=== PATIENT | male | born 1945 | race Caucasian/White ===

== ENCOUNTER → 2016-09-15 | Outpatient (CLI) | payer MEDICARE, BC ==
[2016-09-15 15:21] LABS: CH 31.6; CHCM 33.5; HCT 42.8 % (39.0-53.0); HDW 2.31; HGB 13.9 gm/dL (13.0-17.5); MCH 30.8 pg (25.0-35.0); MCHC 32.5 g/dL (31.0-37.0); MCV 94.6 fL (80.0-100.0); Mean Platelet Volume 7.6; RBC 4.52 m/uL (4.30-5.90); RDW 12.3 % (11.5-15.5); WBC 6.8 k/uL (3.8-10.6)
[2016-09-15 15:29] LABS: INR 2.1 (<1.1); Prothrombin Time 19.9 sec (9.0-12.0)
[2016-09-15 15:31] LABS: Anion Gap 12 mmol/L; Blood Urea Nitrogen 30 mg/dL (9-20); Calcium 9.3 mg/dL (8.4-10.2); Carbon Dioxide 27 mmol/L (22-30); Chloride 101 mmol/L (98-107); Glucose 124 mg/dL (74-99); Non-African American GFR(MDRD) >60 (>60 ml/min/1.73 sqM); Potassium 4.3 mmol/L (3.5-5.1); Sodium 140 mmol/L (137-145)
== END | disposition home or self-care (01) ==
LOC: LABWHC1 14:55
PROVIDERS: ATTEND Internal Medicine Clinical Cardiac Electrophysiology
DX: I25.10 Atherosclerotic heart disease of native coronary artery without angina pectoris (principal); I42.8 Other cardiomyopathies; I40.1 Isolated myocarditis; I49.5 Sick sinus syndrome
CPT/HCPCS: 36415; 80048; 85027; 85610

== ENCOUNTER → 2016-09-22 | Day surgery (SDC) | payer MEDICARE, BC ==
[2016-09-20 10:33] VITALS: BMI 26.4
[~2016-09-22] MED LIST: SODIUM CHLORIDE 0.9% 1,000 ML IV SCH; ceFAZolin 1,000 MG in SODIUM CHLORIDE 0.9% IRRIGATIO 250 ML IRRIGATION ONE; ceFAZolin 2 GM in SODIUM CHLORIDE 0.9% 100 ML IVPB ONE
[2016-09-22 16:44] VITALS: BP 119/67; PULSE 62; RESP 16; TEMP 97.9
[2016-09-22 17:00] LABS: INR 1.3 (<1.1); Prothrombin Time 12.9 sec (9.0-12.0)
--- NOTE | 2016-09-22 17:58 | P.PCN ---
Preoperative Diagnosis: Procedure note Mr. Sharif came in for dual-chamber ICD implant He developed a skin rash about 2 weeks back always belly and chest. He states that it started after he began Coreg. In addition he has developed a rash in relation to the event monitor patch, SEAK with red and angry edges. Suggest Hold off on ICD implantation Switched back to metoprolol succinate but at a low dose of 25 mg a day Reevaluate in 2 weeks and once this skin heals up we will proceed with ICD implantation, dual-chamber for cardiomyopathy
== END ==
LOC: CATHEP 16:19
PROVIDERS: ATTEND Internal Medicine Clinical Cardiac Electrophysiology
DX: Z45.02 Encounter for adjustment and management of automatic implantable cardiac defibrillator (principal); Z53.09 Procedure and treatment not carried out because of other contraindication; L27.1 Localized skin eruption due to drugs and medicaments taken internally; I42.9 Cardiomyopathy, unspecified; I25.10 Atherosclerotic heart disease of native coronary artery without angina pectoris; I10 Essential (primary) hypertension; E78.5 Hyperlipidemia, unspecified; Z95.5 Presence of coronary angioplasty implant and graft; Z79.01 Long term (current) use of anticoagulants; Z79.02 Long term (current) use of antithrombotics/antiplatelets; Z79.82 Long term (current) use of aspirin; Z79.899 Other long term (current) drug therapy; T44.7X5A Adverse effect of beta-adrenoreceptor antagonists, initial encounter
CPT/HCPCS: 85610

== ENCOUNTER → 2016-11-03 | Outpatient (CLI) | payer MEDICARE, BC ==
[2016-11-03 10:20] LABS: CH 31.5; CHCM 33.1; HCT 41.4 % (39.0-53.0); HDW 2.29; HGB 13.8 gm/dL (13.0-17.5); MCH 31.8 pg (25.0-35.0); MCHC 33.3 g/dL (31.0-37.0); MCV 95.6 fL (80.0-100.0); Mean Platelet Volume 7.7; RBC 4.33 m/uL (4.30-5.90); RDW 12.1 % (11.5-15.5)
[2016-11-03 10:25] LABS: Prothrombin Time 19.3 sec (9.0-12.0)
[2016-11-03 10:43] LABS: Anion Gap 9 mmol/L; Blood Urea Nitrogen 24 mg/dL (9-20); Calcium 9.6 mg/dL (8.4-10.2); Carbon Dioxide 27 mmol/L (22-30); Chloride 103 mmol/L (98-107); Glucose 98 mg/dL (74-99); Magnesium 2.1 mg/dL (1.6-2.3); Non-African American GFR(MDRD) >60 (>60 ml/min/1.73 sqM); Potassium 4.7 mmol/L (3.5-5.1); Sodium 139 mmol/L (137-145)
== END | disposition home or self-care (01) ==
LOC: LABWHC1 09:46
PROVIDERS: ATTEND Internal Medicine Clinical Cardiac Electrophysiology
DX: I25.10 Atherosclerotic heart disease of native coronary artery without angina pectoris (principal); I48.1 Persistent atrial fibrillation; I42.8 Other cardiomyopathies; I49.5 Sick sinus syndrome; I48.2 Chronic atrial fibrillation; Z51.81 Encounter for therapeutic drug level monitoring
CPT/HCPCS: 36415; 80048; 83735; 85027; 85610

== ENCOUNTER 2016-11-15 10:49 | Day surgery (SDC) | payer MEDICARE, BC ==
[2016-11-10 16:20] VITALS: BMI 25.9
[~2016-11-15 10:49] MED LIST changes: -SODIUM CHLORIDE 0.9% 1,000 ML IV SCH
[2016-11-15] MEDS: SODIUM CHLORIDE 0.9% 1,000 ML IV SCH (11:19)
[2016-11-15 11:27] LABS: INR 1.4 (<1.1); Prothrombin Time 13.7 sec (9.0-12.0)
[2016-11-15] MEDS ORDERED: IOHEXOL 350 MG/ML 100 ML BOTTLE INJ ONE (12:28)
[2016-11-15] MEDS ORDERED: PROPOFOL 10 MG/ML 20 ML VIAL IV ONE (12:33)
[2016-11-15] MEDS ORDERED: MIDAZOLAM 2 MG/2 ML VIAL ONE (12:33)
[2016-11-15] MEDS ORDERED: fentaNYL (PF) 50 MCG/ML 2 ML AMP ONE (12:33)
[2016-11-15] MEDS ORDERED: LIDOCAINE 1% INJ 10MG/ML (20 ML MDV) SQ ONE ×2 (12:54→13:06)
--- NOTE | 2016-11-15 13:55 | P.HPCAR ---
History of Present Illness Chief Complaint: Persistent severe cardio myopathy, CHF class II Impression Persistent cardiomyopathy predominantly nonischemic with known underlying coronary artery disease single vessel RCA status post stenting Persistent symptomatic atrial fibrillation responded to dofetilide and maintains sinus rhythm Conduction system disease with AV node disease as well as Sick Sinus Syndrome Despite maintenance of sinus rhythm his left ventricular ejection fraction remains at 25% Chronic congestive heart failure, systolic, class II Known underlying single-vessel coronary artery disease On guideline directed medical treatment, LV function remains reduced for greater than 6 months after conversion to sinus rhythm Procedure performed Dual-chamber ICD implant for primary prevention of sudden cardiac Physical Exam Vitals: Vital Signs Temp Pulse Resp BP Pulse Ox 11/15/16 11:10 97.9 F 60 16 120/67 97 Intake and Output 11/14/16 11/15/16 11/15/16 22:59 06:59 14:59 Intake Total 100 Balance 100 Intake: IV 100 Past Medical History Past Medical History: Atrial Fibrillation, Osteoarthritis (OA), Prostate Disorder Additional Past Medical History / Comment(s): See DR Michelle's H&P,SOB w/ exertion, prostate problem years ago, Rt. inguinal hernia History of Any Multi-Drug Resistant Organisms: None Reported Past Surgical History: Heart Catheterization With Stent, Prostate Surgery, Tonsillectomy Additional Past Surgical History / Comment(s): CARDIOVERSION x2-most recent January 2016, TURP Past Anesthesia/Blood Transfusion Reactions: No Reported Reaction Date of Last Stent Placement:: 03/2016 Past Psychological History: No Psychological Hx Reported Smoking Status: Never smoker Past Alcohol Use History: None Reported Past Drug Use History: None Reported - Past Family History Mother Family Medical History: Cancer Additional Family Medical History / Comment(s): . Father Additional Family Medical History / Comment(s): KILLED IN WAR Physical Examination Vital Signs Temp Pulse Resp BP Pulse Ox 11/15/16 11:10 97.9 F 60 16 120/67 97 Intake and Output 11/14/16 11/15/16 11/15/16 22:59 06:59 14:59 Intake Total 100 Balance 100 Intake: IV 100 Results Coagulation 11/15/16 Range/Units 11:15 PT 13.7 H (9.0-12.0) sec Current Medications Generic Name Dose Route Start Last Admin Trade Name Freq PRN Reason Stop Dose Admin Acetaminophen 650 mg 11/15/16 12:40 Tylenol Tab PO Q6HR PRN Mild Pain Aspirin 81 mg 11/16/16 09:00 Aspirin PO DAILY [facility] Atorvastatin Calcium 40 mg 11/15/16 21:00 Lipitor PO HS [facility] Clopidogrel Bisulfate 75 mg 11/16/16 09:00 Plavix PO DAILY [facility] Dofetilide 250 mcg 11/15/16 21:00 Tikosyn PO Q12HR [facility] Sodium Chloride 1,000 mls @ 20 mls/hr 11/15/16 07:31 11/15/16 11:19 Saline 0.9% IV 0 mls .Q24H [facility] Administration Lactated Ringer's 1,000 mls @ 20 mls/hr 11/15/16 07:31 Lactated Ringers IV .Q24H [facility] Cefazolin Sodium 2 gm/ Sodium 100 mls @ 100 mls/hr 11/15/16 18:00 Chloride IVPB 11/16/16 12:59 Q6H [facility] Losartan Potassium 25 mg 11/16/16 09:00 Cozaar PO DAILY [facility] Metoprolol Succinate 25 mg 11/16/16 09:00 Toprol Xl PO DAILY [facility] Sodium Chloride 10 ml 11/15/16 21:00 Saline Flush IV Q12HR [facility] Spironolactone 50 mg 11/16/16 09:00 Aldactone PO DAILY [facility] Warfarin Sodium 5 mg 11/15/16 17:30 Coumadin PO W/SUPPER [facility] Intake and Output 11/14/16 11/15/16 11/15/16 22:59 06:59 14:59 Intake Total 100 Balance 100 Intake: IV 100
--- NOTE | 2016-11-15 14:13 | LTR ---
November 15, 2016 RE: Ian Sharif Dear Gregg; I had the pleasure of seeing Mr. Ian Sharif in electrophysiology followup. As you know Mr. Sharif' cardiomyopathy remains unchanged at 25% despite medical treatment, and maintenance of sinus rhythm since last year. Since he also has conduction system disease, a dual-chamber ICD was implanted successfully today and his DFT is at or below 11 joules. He will continue to follow with you and Dr. Giovanni Reese as before. I will continue anticoagulation and dofetilide and his cardiomyopathy medications. Thank you for entrusting me with the care of your patient. Warm regards. Sincerely, PRETTY SCHMID MD
[2016-11-15] MEDS: LACTATED RINGERS 1,000 ML IV SCH (14:40)
[2016-11-15 16:09] VITALS: RESP 18
[2016-11-15] MEDS ORDERED: WARFARIN 5 MG TAB PO SCH (17:30)
[2016-11-15] MEDS: ceFAZolin 2 GM in SODIUM CHLORIDE 0.9% 100 ML IVPB SCH ×2 (18:13→23:39)
[2016-11-15] MEDS: ACETAMINOPHEN TAB 325 MG TAB PO PRN (18:22)
[2016-11-15] MEDS: DOFETILIDE 250 MCG CAP PO SCH (20:18)
[2016-11-15] MEDS ORDERED: ATORVASTATIN 40 MG TAB PO SCH (21:00)
[2016-11-16] MEDS: ACETAMINOPHEN TAB 325 MG TAB PO PRN (04:27)
[2016-11-16] MEDS: ceFAZolin 2 GM in SODIUM CHLORIDE 0.9% 100 ML IVPB SCH ×2 (05:59→11:28)
[2016-11-16] MEDS: SODIUM CHLORIDE 0.9% 1,000 ML IV SCH (05:59)
[2016-11-16] MEDS: LACTATED RINGERS 1,000 ML IV SCH (05:59)
--- NOTE | 2016-11-16 07:18 | XR ---
EXAMINATION TYPE: XR chest 2V DATE OF EXAM: 11/16/2016 6:15 AM COMPARISON: 04/24/2016 HISTORY: 71-year-old male lead placement check TECHNIQUE: Frontal and lateral views FINDINGS: The cardiomediastinal silhouette, aorta, and pulmonary vasculature are within normal limits. Lungs an d pleural spaces are clear. Left anterior chest wall AICD generator with right atrial and right ventricular leads. IMPRESSION: No acute cardiopulmonary process. Right atrial and right ventricular AICD leads.
--- NOTE | 2016-11-16 08:04 | P.DS ---
Providers Attending physician: Erik Michelle Primary care physician: [facility] Hospital Course: Patient is doing well from a cardiac standpoint. He is ablated to the bathroom. No chest discomfort or undue shortness of breath. He is resting comfortably in bed Vitals are stable. He is afebrile 97.1F, pulse rate in the 60s, telemetry within normal limits, blood pressure 112/73 mmHg normal respirations Heart sounds S1 and S2 are normal no murmurs no gallops Rhythm is regular Breath sounds are normal no rhonchi no crackles Abdomen is soft nontender Extremities warm no edema Device device site is healing well no hematoma Impression Predominantly nonischemic cardio myopathy Single vessel coronary artery disease status post stenting to the RCA Persistent atrial fibrillation status post conversion to sinus rhythm with dofetilide On appropriate guideline directed medical treatment No improvement in LV function, ejection fraction remains at 25% chronic systolic dysfunction with class II heart failure Status post dual-chamber ICD since the patient also has significant conduction system disease Plan Discharge home today and follow-up in the device clinic in 5 days and follow-up with primary scrap bunch maker as scheduled Hold Coumadin for 2 more days continue all other medications as before Instructions given to the patient Patient Condition at Discharge: Stable Plan - Discharge Summary Discharge Medication List Aspirin 81 mg PO DAILY #30 chew 04/05/16 [Rx] Atorvastatin [Lipitor] 40 mg PO HS #30 tab 04/05/16 [Rx] Clopidogrel [Plavix] 75 mg PO DAILY #30 tab 04/05/16 [Rx] Losartan [Cozaar] 25 mg PO DAILY #30 tab 04/05/16 [Rx] Warfarin [Coumadin] 5 mg PO W/SUPPER 04/24/16 [History] Acetaminophen Tab [Tylenol] 650 mg PO Q6HR PRN #0 tab 04/27/16 [Rx] Dofetilide [Tikosyn] 250 mcg PO Q12HR #180 cap 05/25/16 [Rx] Magnesium Oxide [Mag-Ox] 400 mg PO DAILY #90 tablet 05/25/16 [Rx] Spironolactone [Aldactone] 50 mg PO DAILY #90 tab 05/25/16 [Rx] Nitroglycerin Sl Tabs [Nitrostat] 0.4 mg SUBLINGUAL DIRECTED PRN 09/20/16 [ History] Metoprolol Succinate [Toprol XL] 25 mg PO DAILY 11/10/16 [History] Activity/Diet/Wound Care/Special Instructions: PATIENT EDUCATION MATERIAL Instructions following a heart rhythm device implant. 1. Keep dressing DRY for ONE week. You may cover the area with Saran or Cling Wrap, prior to a shower. 2. The dressing will be removed after one week in the Device Clinic @ [facility]. Absorbable sutures were used to close the wound. 3. Avoid raising the arm above the shoulder level. [6 week restriction] 4. Avoid arm movements, like backscratching, rubbing the head, or pulling on a cord. (6 weeks restriction) 5. Gentle range of motion movements of the shoulder, closest to the incision should be performed to avoid a frozen shoulder. (Pendulum exercises of the shoulder) 6. The opposite arm may be used freely. 7. Avoid driving for 7 days. 8. Avoid activities such as golfing, swimming, weed whacking, lifting more than 10 pounds weight, bowling, gymnastics and weight training/lifting. (6 weeks restriction) 9. Activities such as wood chopping with an axe, pull-ups in the gymnasium, power lifting, arc-welding, being close to home induction cooktops will always be a problem. In case of any problems, please call [facility], Danny Green, @ [phone], Attention: Device Clinic Follow-up in the device clinic in 5 days Follow-up with DR Reese as scheduled Hold Coumadin for 2 more days and then resume
--- NOTE | 2016-11-16 08:35 | CE ---
DATE OF SERVICE: Mr. Ian Sharif is a 71-year-old male patient who has predominantly nonischemic cardiomyopathy, but also had underlying coronary artery disease, status post stenting to the RCA as he had very symptomatic persistent atrial fibrillation, but his heart failure symptoms improved after conversion to sinus rhythm and maintenance on dofetilide. However, since May despite maintaining sinus rhythm, he continues to have severe cardiomyopathy and his left ventricular ejection fraction is persistently at 25% despite all interventions and appropriate medical treatment. He has conduction system disease. He underwent a dual-chamber ICD implantation for primary prevention of sudden cardiac . The patient was brought to the EP lab in a fasting state. Written informed consent was obtained prior to the procedure. The left shoulder area was prepped and draped as per protocol and 1% lidocaine was used for local anesthesia. A 4 cm incision was made parallel to the deltopectoral groove about 1.5 cm medial to it then incision was carried down to the level of the pectoralis muscle. A subfascial pocket was made. Hemostasis was assured. The left axillary vein was accessed at 2 separate points under fluoroscopy and via appropriate-sized introducer sheath, 2 leads were positioned in the right heart. The atrial lead was a [employer] Ingevity MRI 52 cm in length, model #7741, serial #[id number]. This was screwed in the right atrial appendage. P waves were 3.7 mV, pacing threshold 1.0 v at 0.5 ms. Pacing impendence 1460 ohms. The RV lead was a single coil and ( ) lead, [place] 4 SG single coil 64 cm in length and model #0293, serial #[id number]. This was placed in low RV septum. The R waves are 23.9 mV, pacing threshold 0.4 v at 0.5 ms, pacing impedance 781 ohms, shocking impedance 66 ohms. The 10 v test is negative. The 10 v test was negative for both leads. The leads were secured to the underlying pectoralis fascia using 2 nonabsorbable sutures. Pocket was irrigated with antibiotic solution. Leads were connected to the generator ([employer] model #D152, serial #[id number]. The leads and the generator were then placed in the subfascial pocket. The wound was closed in 3 layers and dressed per protocol. DFT TESTING UNDER ANESTHESIA. Shock and T wave protocol was used to induce ventricular fibrillation. This was adequately and appropriately detected at ( ) sensitivity and successfully internally defibrillated with a 10 joule shock. The charge time was 1.9 seconds. Shocking impedance 61 ohms. No postshock noise. (Vector equals distal ( ) ). The device was then programmed to rhythm. IQ AAI with VVI backup to minimize RV pacing since he has conduction system disease. Rate 50-140 bpm. Madit-RIT programming with 3 zones and appropriate antitachycardia pacing, cardioversion and defibrillation were programmed. The patient tolerated the procedure well without any acute complications. PLAN: Continue medical treatment, resume anticoagulation, continue dofetilide and follow up with Dr. Giovanni Reese and Dr. Gregg Saldivar.
[2016-11-16] MEDS: DOFETILIDE 250 MCG CAP PO SCH (08:44)
[2016-11-16] MEDS ORDERED: LOSARTAN 25 MG TAB PO SCH (09:00)
[2016-11-16] MEDS ORDERED: METOPROLOL SUCCINATE (ER) 25 MG TAB.ER.24H PO SCH (09:00)
[2016-11-16] MEDS ORDERED: CLOPIDOGREL 75 MG TAB PO SCH (09:00)
[2016-11-16] MEDS ORDERED: SPIRONOLACTONE 25 MG TAB PO SCH (09:00)
[2016-11-16] MEDS ORDERED: ASPIRIN 81 MG CHEW PO SCH (09:00)
[2016-11-16 11:30] VITALS: BP 125/74; PULSE 68; TEMP 97.4
== END 2016-11-16 13:54 | disposition home or self-care (01) ==
LOC: CATHEP 10:49 → 6SEL 13:52 → CATHEP 11-16 13:54
PROVIDERS: ATTEND Internal Medicine Clinical Cardiac Electrophysiology
DX: I42.9 Cardiomyopathy, unspecified (principal); I25.5 Ischemic cardiomyopathy; I25.10 Atherosclerotic heart disease of native coronary artery without angina pectoris; Z95.5 Presence of coronary angioplasty implant and graft; I48.1 Persistent atrial fibrillation; I49.5 Sick sinus syndrome; I50.22 Chronic systolic (congestive) heart failure; I44.0 Atrioventricular block, first degree; Z00.6 Encounter for examination for normal comparison and control in clinical research program; M19.90 Unspecified osteoarthritis, unspecified site; E78.5 Hyperlipidemia, unspecified; I25.2 Old myocardial infarction; I27.2 Other secondary pulmonary hypertension; Z79.01 Long term (current) use of anticoagulants; Z79.02 Long term (current) use of antithrombotics/antiplatelets; Z79.82 Long term (current) use of aspirin; Z79.899 Other long term (current) drug therapy; Z88.2 Allergy status to sulfonamides
CPT/HCPCS: 93641; 33249; 85610; 71020; C1892 ×2; C1769; C1777; C1721; C1898; J2250; Q9967; J0690 ×3; J2001; J3010; J2704

== ENCOUNTER → 2017-04-18 | Outpatient (CLI) | payer MEDICARE, BC ==
[2017-04-18 16:54] LABS: Anion Gap 10 mmol/L; Blood Urea Nitrogen 28 mg/dL (9-20); Calcium 9.8 mg/dL (8.4-10.2); Carbon Dioxide 26 mmol/L (22-30); Chloride 101 mmol/L (98-107); Glucose 99 mg/dL (74-99); Non-African American GFR(MDRD) >60 (>60 ml/min/1.73 sqM); Sodium 137 mmol/L (137-145)
[2017-04-18 17:04] LABS: Potassium 4.7 mmol/L (3.5-5.1)
== END | disposition home or self-care (01) ==
LOC: LABWHC1 16:09
PROVIDERS: ATTEND Internal Medicine Interventional Cardiology
DX: I10 Essential (primary) hypertension (principal); I42.9 Cardiomyopathy, unspecified
CPT/HCPCS: 36415; 80048

== ENCOUNTER → 2017-05-05 | Outpatient (CLI) | payer MEDICARE, BC ==
[2017-05-05 12:28] LABS: Anion Gap 9 mmol/L; Blood Urea Nitrogen 30 mg/dL (9-20); Calcium 9.3 mg/dL (8.4-10.2); Carbon Dioxide 25 mmol/L (22-30); Chloride 102 mmol/L (98-107); Glucose 119 mg/dL (74-99); Magnesium 1.8 mg/dL (1.6-2.3); Non-African American GFR(MDRD) >60 (>60 ml/min/1.73 sqM); Potassium 4.9 mmol/L (3.5-5.1); Sodium 136 mmol/L (137-145)
== END | disposition home or self-care (01) ==
LOC: LABWHC1 11:31
PROVIDERS: ATTEND Internal Medicine Clinical Cardiac Electrophysiology
DX: I48.91 Unspecified atrial fibrillation (principal)
CPT/HCPCS: 36415; 80048; 83735

== ENCOUNTER → 2018-09-10 | Outpatient (CLI) | payer MEDICARE, BC ==
--- NOTE | 2018-09-10 14:43 | US ---
EXAMINATION TYPE: US kidneys/renal and bladder DATE OF EXAM: 09/10/2018 COMPARISON: NONE CLINICAL HISTORY: R31.21 HEMATURIA. EXAM MEASUREMENTS: Right Kidney: 10.5 x 4.9 x 4.5 cm Left Kidney: 9.6 x 4.5 x 4.5 cm Right Kidney: echogenic foci noted lower pole possible stones largest of 2 measuring 0.4 x 0.2 x 0.5c m Left Kidney: No hydronephrosis or masses seen Bladder: wnl There is no evidence for hydronephrosis at this point in time. No masses are identified. The urinary bladder is anechoic. Bilateral ureteral jets are seen. IMPRESSION: Nonobstructing nephrolithiasis.
== END | disposition home or self-care (01) ==
LOC: RADUSWWP 13:56
PROVIDERS: ATTEND Internal Medicine
DX: N20.0 Calculus of kidney (principal)
CPT/HCPCS: 76770

== ENCOUNTER → 2022-03-22 | Outpatient (CLI) | payer MEDICARE, BC ==
[2022-03-22 15:12] LABS: Anion Gap 10.9 mmol/L (10.00-18.00); BUN/Creat Ratio 22.76 Ratio (12.00-20.00); Blood Urea Nitrogen 23.9 mg/dL (9.0-27.0); Calcium 9.1 mg/dL (8.7-10.3); Carbon Dioxide 22.9 mmol/L (20.0-27.5); Non-African American GFR(CKD) 68.1 (60.0-200.0); Potassium 4.2 mmol/L (3.5-5.5)
== END | disposition home or self-care (01) ==
LOC: LABWHC1 08:16
PROVIDERS: ATTEND Internal Medicine Interventional Cardiology
DX: I50.9 Heart failure, unspecified (principal)
CPT/HCPCS: 36415; 80048

== ENCOUNTER → 2022-05-06 | Outpatient (CLI) | payer MEDICARE, BC ==
[2022-05-06 14:41] LABS: African American GFR (CKD) 51.3 (60.0-200.0); Anion Gap 11.9 mmol/L (10.00-18.00); BUN/Creat Ratio 31.13 Ratio (12.00-20.00); Blood Urea Nitrogen 46.7 mg/dL (9.0-27.0); Calcium 9.2 mg/dL (8.7-10.3); Carbon Dioxide 25.1 mmol/L (20.0-27.5); Non-African American GFR(CKD) 44.3 (60.0-200.0); Potassium 5.1 mmol/L (3.5-5.5)
== END | disposition home or self-care (01) ==
LOC: LABWHC1 09:53
PROVIDERS: ATTEND Internal Medicine Interventional Cardiology
DX: I50.9 Heart failure, unspecified (principal)
CPT/HCPCS: 36415; 80048

== ENCOUNTER → 2022-05-23 | Outpatient (CLI) | payer MEDICARE, BC ==
--- NOTE | 2022-05-23 15:35 | CT ---
EXAMINATION TYPE: CT urogram wo/w con DATE OF EXAM: 05/23/2022 COMPARISON: INDICATION: hematuria DLP: 1232.90 mGycm, Automated exposure control for dose reduction was used. CONTRAST: 100 mL of Isovue 370. Study performed TECHNIQUE: Axial images were obtained from above the diaphragm to the pubic rami in the axial plane a t 5 mm thick sections. Reconstructed images are reviewed on the computer in the coronal plane. FINDINGS: Limited CT sections are obtained the lung bases. The lung bases are clear. CT ABDOMEN: Liver: Multiple scattered hypodensities or within the liver which may be related to multiple hepatic cysts. Spleen: Normal Pancreas: Normal Adrenal glands: The adrenal glands are normal. Gallbladder: Normal Kidneys: No masses are evident. No hydronephrosis is present. No cysts are present. There is a 0.7 cm nonobstructing renal stone mid to inferior pole right kidney. 3-D reconstructed images performed through the renal system after a delay were obtained. Ureters have limited evaluation more so on the right than the left. No hydronephrosis is identified. It may be an extrarenal pelvis on the right. Ur eters as visualized appear normal. Urinary bladder appears normal. Aorta: Vascular calcification is within the aorta. Aorta is tortuous. Inferior vena cava: Normal. CT PELVIS: There is a right inguinal hernia containing loops of nondistended dilated bowel. No obstru ction is evident. Loops of bowel within the abdomen and pelvis are normal. There are loops of bowel which are incom pletely distended or lack oral contrast limiting their evaluation. Appendix: Normal as visualized. Urinary bladder: Normal. Genitourinary structures: Prostate is prominent contains multiple calcifications. Osseous structures: No suspicious lytic or sclerotic lesions. Facet changes are in the lower lumbar s pine. Degenerative disc changes are present. Some facet hypertrophy may be contributing to spinal can al narrowing. IMPRESSIONS: 1. No suspicious abnormality renal collecting system. There is some limitation on the evaluation of the ureters. There appears to be a nonobstructing right renal stone present 2. Right inguinal hernia without bowel obstruction. 3. Scattered hypodensities within the liver likely related to hepatic cysts. 4. Facet changes and degenerative disc changes lumbar spine. MRI could further evaluate for spinal ca nal stenosis.
== END | disposition home or self-care (01) ==
LOC: RADCTMAIN 13:26
PROVIDERS: ATTEND Urology
DX: R31.0 Gross hematuria (principal)
CPT/HCPCS: 82565; 84520; 74178; 36415; 74400; Q9967

== ENCOUNTER 2022-07-05 05:53 | Day surgery (SDC) | payer MEDICARE, BC ==
[2022-07-05] MEDS ORDERED: LACTATED RINGERS 1,000 ML IV SCH (06:03)
[2022-07-05] MEDS ORDERED: LIDOCAINE 1% (10MG/ML) FOR IV START INTRADERMA PRN (06:03)
[2022-07-05 06:32] VITALS: TEMP 97.2
[2022-07-05] MEDS ORDERED: LIDOCAINE 2% INJ 20 MG/ML (2 ML VIAL) ONE (06:56)
[2022-07-05] MEDS ORDERED: PROPOFOL 10 MG/ML 20 ML VIAL IV ONE (06:56)
--- NOTE | 2022-07-05 07:21 | P.PCN ---
Date of Procedure: 07/05/22 Procedure(s) Performed: Brief history: Patient is a pleasant 77-year-old white female scheduled for an elective upper endoscopy as well as colonoscopy as a part of evaluation of I deficiency anemia. He also complaining of intermittent rectal bleeding for the last few months. He has history of A. fib and has been on Coumadin which is currently on hold for 5 days. Procedure performed: Esophagogastroduodenoscopy with biopsy Colonoscopy with biopsy. Preoperative diagnosis: Iron deficiency anemia and intermittent rectal bleeding Anesthesia: MAC Procedure: After informed consent was obtained from the patient was brought into the endoscopy unit and IV sedation was administered by anesthesia under continuous monitoring. Initially upper endoscopy was done. The Olympus GF 160 video endoscope was inserted inserted into the mouth and esophagus intubated without any difficulty and was gradually advanced into the stomach and duodenum and carefully examined. The bulb and second part of the duodenum appeared normal. biopsies were done from the duodenum to rule out celiac disease The scope was t hen withdrawn into the stomach adequately insufflated with air and upon careful examination the antrum and body, had scattered erosions and biopsies were done from this area. The cardia and fundus appeared normal. The scope was then withdrawn into the esophagus. The GE junction was located at 40 cm to the incisors. It appeared regular with 2 superficial erosions consistent with LA grade B reflux esophagitis. Rest of the esophagus appeared normal. Patient tolerated the procedure well. At this time the patient continued to remain sedation. Initial digital rectal examination was normal. Olympus CF 160 video colonoscope was then inserted into the rectum and gradually advanced to the cecum without any difficulty. Careful examination was performed as the scope was gradually being withdrawn. The prep was excellent. The cecum, appeared normal. Ascending colon there was a 3 mm polyp removed by cold biopsy. In the transverse colon there was another 3 mm polyp removed by cold biopsy. Rest of the ascending colon, transverse colon, descending colon, sigmoid colon and rectum appeared normal. Scattered sigmoid diverticulosis. Small internal hemorrhoids. Retroflexion was performed in the rectum and small internal hemorrhoids were noted. Patient tolerated the procedure well. Impression: 1. Upper endoscopy revealed antral erosive gastritis and LA grade B reflux esophagitis 2. Colonoscopy revealed a 3 mm ascending colon polyp and a 4 mm transverse colon polyp status post cold biopsy and scattered sigmoid diverticulosis. Recommendations: Findings of this examination were discussed with the patient as well as his family. He was advised to follow with the biopsy results. He'll continue with iron supplements and monitor CBC periodically. He was advised to resume Co umadin today.
[2022-07-05 07:24] VITALS: RESP 16
[2022-07-05 07:40] VITALS: BP 106/65; PULSE 62
== END 2022-07-05 07:52 | disposition home or self-care (01) ==
LOC: ORWHC2ENDO 05:53
PROVIDERS: ATTEND Internal Medicine Gastroenterology
DX: K29.70 Gastritis, unspecified, without bleeding (principal); D12.2 Benign neoplasm of ascending colon; D12.3 Benign neoplasm of transverse colon; K21.00 Gastro-esophageal reflux disease with esophagitis, without bleeding; D50.9 Iron deficiency anemia, unspecified; I25.10 Atherosclerotic heart disease of native coronary artery without angina pectoris; I11.0 Hypertensive heart disease with heart failure; I50.9 Heart failure, unspecified; E78.5 Hyperlipidemia, unspecified; I48.91 Unspecified atrial fibrillation; N40.0 Benign prostatic hyperplasia without lower urinary tract symptoms; K76.89 Other specified diseases of liver; Z88.5 Allergy status to narcotic agent; Z79.899 Other long term (current) drug therapy; Z79.01 Long term (current) use of anticoagulants; Z79.82 Long term (current) use of aspirin
CPT/HCPCS: 88305; 45380; 43239; J2704; J2001

== ENCOUNTER → 2023-06-02 | Outpatient (CLI) | payer MEDICARE, BC ==
--- NOTE | 2023-06-02 12:20 | US ---
EXAMINATION TYPE: US arterial LE single level DATE OF EXAM: 06/02/2023 9:20 AM CLINICAL INDICATION: Male, 78 years old with history of I73.9 PAD; Numbness bilateral legs, worse on the left History of: Smoker: no Hypertension: no Diabetic: borderline Hyperlipidemia: yes TIA/CVA: no Previous Vascular Surgery: yes CAD: CO: no Vascular Ulcers: no Claudication: no Gangrene: no Doppler Waveforms: Right: Multiphasic Left: Multiphasic Right Brachial Pressure: 108 Left Brachial Pressure: 102 Ankle-Brachial Indices: Right: 1.13 Left: 1.43 Toe Brachial Indices: Right: 0.35 Left: 0.24 IMPRESSION: 1. Abnormal right MARU index. Discordant TBI suggesting severe atherosclerotic disease. 2. Elevated left MARU kidney associated with calcified blood vessels with abnormal TBI measuring 0.24. Distal significant atherosclerotic disease not excluded consider dedicated arteriogram.
== END | disposition home or self-care (01) ==
LOC: RADUSWWP 08:43
PROVIDERS: ATTEND Internal Medicine
DX: I73.9 Peripheral vascular disease, unspecified (principal); R94.30 Abnormal result of cardiovascular function study, unspecified; R94.4 Abnormal results of kidney function studies
CPT/HCPCS: 93922

== ENCOUNTER → 2023-09-15 | Outpatient (CLI) | payer MEDICARE ==
[2023-09-15 06:55] LABS: African American GFR (CKD) 65 (>60 ml/min/1.73 sqM); Blood Urea Nitrogen 36 mg/dL (9-20); Non-African American GFR(CKD) 56 (>60 ml/min/1.73 sqM)
--- NOTE | 2023-09-15 09:30 | CT ---
EXAMINATION TYPE: CT angio abd aorta w/Runoff DATE OF EXAM: 09/15/2023 COMPARISON: CT abdomen and pelvis 05/23/2022 HISTORY: 78-year-old male I73.9, PAD, unspecified TECHNIQUE: CT scanning of the abdomen and pelvis without IV contrast. Subsequent postcontrast scannin g after patient injected with 100 ml mL of Isovue 370. Scanning extended from the abdomen and pelvis with bilateral lower extremity runoff. Coronal/sagittal reconstructions performed. 3-D reconstruction s generated on a dedicated independent workstation. CT DLP: 1019.60 mGycm Automated exposure control for dose reduction was used. FINDINGS: Abdomen pelvis: Heart is mildly enlarged. No pericardial effusion. Pacemaker leads noted. Small fat-containing left-s ided Bochdalek hernia. Mild minimal chronic-appearing interstitial densities in the lower lungs. No p leural effusion. A couple small hepatic dome cyst measuring up to 1 cm remain unchanged from 2021. Noncontrast and early arterial phase imaging of the gallbladder, adrenal glands, left kidney, spleen, and pancreas show no gross abnormality. A couple of nonobstructive lower pole right renal calculi measuring up to 6 mm. No dilated small bowel, free fluid, or free air. However, there is a large indirect right inguinal hernia containing nonobstructed ileal loops. The he rnia sac measures 15.0 cm long by 8.8 cm wide by 6.6 cm AP. It has markedly enlarged from 2021. No mesenteric or retroperitoneal adenopathy. Hhvy-[id number] stool burden. Mild sigmoid diverticulosis. No pericolonic inflammatory change. Small direct fatty left inguinal hernia. Bladder partially distended but with mild circumferential wa ll thickening. Prostate gland remains enlarged at 6.0 cm wide with scattered calcifications. No abnor mal fluid collection in the pelvis or pelvic lymphadenopathy. Bones: Mild/moderate degenerative change of the hips. Osteopenia facet arthropathy visualized lower lumbar s pine. Moderate degenerative disc disease L2-L3. Vasculature: Scattered mild atherosclerotic calcifications abdominal aorta. Celiac axis and SMA are patent. There are accessory renal arteries on both sides. Right: Mild atherosclerotic calcifications within the iliac arteries. No significant stenosis. [employer] and PFA are patent. Mild atherosclerotic changes distal SFA and also within the upper popliteal artery without any signif icant stenosis. Normal take off anterior tibial artery. Mild atherosclerotic calcifications tibial peroneal trunk and throughout the trifurcation vessels. Both posterior tibial artery and peroneal artery becomes diminutive at the mid leg level. Peroneal artery not well seen at the distal third leg level. There is runoff via the anterior tibial artery. Posterior tibial artery is seen to the medial hindfoo t and then loses enhancement. Left: Mild atherosclerotic calcifications in the iliac arteries without significant stenosis. [employer] and PFA are patent. Scattered mild prostatic calcifications throughout the SFA and popliteal artery which otherwise remai n patent. Normal takeoff of the anterior tibial artery. Moderate focal stenosis proximal anterior tibial artery axial image 443. Tibial peroneal trunk is patent. Additional scattered mild atherosclerotic calcifications throughout the trifurcation vessels. Peroneal artery becomes diminutive at the mid leg level and is not well seen at the distal third leg. The anterior tibial artery becomes diminutive at the hindfoot. Otherwise, there is two-vessel runoff via the anterior tibial and posterior tibial arteries. IMPRESSION: 1. SCATTERED MILD ATHEROSCLEROTIC CHANGES THROUGHOUT. INCIDENTAL ACCESSORY BILATERAL RENAL ARTERIES. RIGHT: 2. THE POSTERIOR TIBIAL ARTERY AND PERONEAL ARTERIES BECOME DIMINUTIVE AT THE MID LEG LEVEL. PERONEAL ARTERY NOT WELL SEEN AT THE DISTAL THIRD LEG LEVEL. 3. THERE IS RUNOFF VIA THE ANTERIOR TIBIAL ARTERY. THE POSTERIOR TIBIAL ARTERY IS SEEN TO THE MEDIAL HINDFOOT AND THEN LOSES ENHANCEMENT. LEFT: 4. MODERATE FOCAL STENOSIS PROXIMAL ANTERIOR TIBIAL ARTERY. IT BECOMES DIMINUTIVE LOWER DOWN AT THE H INDFOOT. 5. THE PERONEAL ARTERY BECOMES DIMINUTIVE AT THE MID LEG LEVEL AND IS NOT WELL SEEN AT THE DISTAL THI RD LEG. 6. OTHERWISE, TWO-VESSEL RUNOFF VIA THE ANTERIOR AND POSTERIOR TIBIAL ARTERIES. ABDOMEN AND PELVIS: 7. INTERVAL MARKED ENLARGEMENT OF THE PATIENT'S IN DIRECT RIGHT INGUINAL HERNIA CONTAINING MULTIPLE I KAUFMAN LOOPS AND NOW MEASURING UP TO 15.0 CM LONG AND 8.8 CM WIDE. NO OBSTRUCTIVE CHANGES AT THIS TIME. 8. A COUPLE NONOBSTRUCTING RIGHT RENAL CALCULI MEASURING UP TO 6 MM. SIGMOID DIVERTICULOSIS. MILD CAR DIOMEGALY.
== END | disposition home or self-care (01) ==
LOC: RADCTMAIN 05:59
PROVIDERS: ATTEND Internal Medicine
DX: I73.9 Peripheral vascular disease, unspecified (principal); I70.0 Atherosclerosis of aorta; K57.30 Diverticulosis of large intestine without perforation or abscess without bleeding; I51.7 Cardiomegaly; K40.90 Unilateral inguinal hernia, without obstruction or gangrene, not specified as recurrent
CPT/HCPCS: 82565; 84520; 75635; 36415; Q9967